=== PATIENT | female | born 1975 | race Caucasian/White ===

== ENCOUNTER 2017-11-17 14:01 | Outpatient (CLI) | payer OTHER | END 2017-11-17 15:00 | disposition home or self-care (01) | LOC: RAD 14:01 | DX: M25.551 Pain in right hip (principal); M25.552 Pain in left hip ==

== ENCOUNTER 2018-03-31 10:33 | Outpatient (CLI) | payer OTHER | END 2018-03-31 10:39 | disposition home or self-care (01) | LOC: SONOGRAMA 10:33 → MAMO-SONO 10:45 | DX: R10.2 Pelvic and perineal pain (principal); N93.8 Other specified abnormal uterine and vaginal bleeding ==

== ENCOUNTER 2018-06-16 10:12 | Emergency (ER) | payer OTHER ==
[~2018-06-16] VITALS: Ht 165.1 cm; Wt 74.8 kg
[2018-06-16] MEDS ORDERED: ZOLOFT50 MG (10:37)
[2018-06-16] MEDS ORDERED: ATIVAN0.5 MG (10:37)
[2018-06-16] MEDS ORDERED: AMBIEN CR12.5 MG (10:38)
== END 2018-06-16 16:03 | disposition home or self-care (01) ==
LOC: ER 10:12
DX: R10.84 Generalized abdominal pain (principal)

== ENCOUNTER 2021-11-03 14:13 | Outpatient (CLI) | payer OTHER ==
[~2021-11-03 14:13] MED LIST: AMBIEN CR12.5 MG; ATIVAN0.5 MG; ZOLOFT50 MG
== END 2021-11-03 14:20 | disposition home or self-care (01) ==
LOC: SONOGRAMA 14:13
PROVIDERS: ATTEND Obstetrics & Gynecology
DX: E04.9 Nontoxic goiter, unspecified (principal)

== ENCOUNTER 2021-11-19 11:09 | Outpatient (CLI) | payer OTHER | END 2021-11-19 11:10 | disposition home or self-care (01) | LOC: SONOGRAMA 11:09 | PROVIDERS: ATTEND Pathology Anatomic Pathology & Clinical Pathology | DX: E04.1 Nontoxic single thyroid nodule (principal) ==